=== PATIENT | female | born 1970 | race Caucasian/White ===

== ENCOUNTER 2017-02-05 03:57 | Emergency (ER) | payer OTHER ==
[~2017-02-05] VITALS: Ht 167.6 cm; Wt 97.5 kg
[2017-02-05 04:07] VITALS: BP 127/87
== END 2017-02-05 06:38 | disposition left against medical advice (07) ==
LOC: ER 03:59
DX: H92.01 Otalgia, right ear (principal); Z53.21 Procedure and treatment not carried out due to patient leaving prior to being seen by health care provider

== ENCOUNTER 2017-02-05 09:35 | Emergency (ER) | payer OTHER ==
[~2017-02-05] VITALS: Ht 167.6 cm; Wt 97.5 kg
[2017-02-05 09:56] VITALS: BP 143/91
[2017-02-05] MEDS ORDERED: cefTRIAXone SOD 1,000 MG VL IM ONE (10:15)
== END 2017-02-05 10:34 | disposition home or self-care (01) ==
LOC: ER 09:36
DX: H66.91 Otitis media, unspecified, right ear (principal); E07.89 Other specified disorders of thyroid; Z88.0 Allergy status to penicillin; Z88.1 Allergy status to other antibiotic agents; Z88.2 Allergy status to sulfonamides
CPT/HCPCS: 96372; 99283; J0696